=== PATIENT | female | born 1935 | race Caucasian/White ===

== ENCOUNTER 2019-05-14 15:32 | Emergency (ER) | payer OTHER, MEDICARE ==
[~2019-05-14] VITALS: Ht 165.1 cm; Wt 72.6 kg
[~2019-05-14 15:32] MED LIST: NORCO 5-325 TA1 EACH PO
[2019-05-14 17:04] LABS: ABSOLUTE NEUTROPHILS 7.6 thou/uL (1.4-8.2); BASOPHILS 0.8 % (0.0-2.0); EOSINOPHILS 1.3 % (0.0-3.0); HEMATOCRIT 28.3 % (37.0-47.0); HEMOGLOBIN 9.4 gm/dL (12.0-15.0); LYMPHOCYTES 14.1 % (24.0-44.0); MCH 28.2 pg (26.0-34.0); MCHC 33.3 g/dL (28.0-37.0); MCV 84.8 fL (80.0-100.0); MONOCYTES 9.5 % (1.0-8.0); PLATELET COUNT 262 thou/uL (150-400); POLYS 74.3 % (36.0-66.0); RBC 3.34 mil/uL (4.20-5.00); RDW 14.5 % (10.5-14.5); WBC 10.2 thou/uL (4.0-11.0)
[2019-05-14 17:09] LABS: ANION GAP 10 mmol/L (7-16); BUN 27 mg/dL (7-18); CALCIUM 9.6 mg/dL (8.5-10.1); CHLORIDE 105 mmol/L (98-107); CO2 22 mmol/L (21-32); CREATININE 1.4 mg/dL (0.6-1.0); GLUCOSE 178 mg/dL (74-106); POTASSIUM 4.3 mmol/L (3.5-5.1); SODIUM 137 mmol/L (136-145)
[2019-05-14 17:19] LABS: ALBUMIN 3.2 g/dL (3.4-5.0); DIRECT BILIRUBIN 0.2 mg/dL (<0.1-0.3); SGOT 50 U/L (15-37); SGPT 28 U/L (30-65); TOTAL BILIRUBIN 0.7 mg/dL (<0.1-1.0); TOTAL PROTEIN 6.5 g/dL (6.4-8.2); TROPONIN-I <0.06 ng/mL (<0.06)
[2019-05-14] MEDS ORDERED: HYDRALAZINE 10M10 MG PO (17:24)
[2019-05-14] MEDS ORDERED: LOPRESSOR50 PO (17:24)
[2019-05-14] MEDS ORDERED: METFORMIN HCL500 MG PO (17:24)
[2019-05-14] MEDS ORDERED: ASPIRIN81 M2 PO (17:25)
[2019-05-14] MEDS ORDERED: LASIX 20 MG TAB20 MG PO (17:25)
[2019-05-14] MEDS ORDERED: COZAAR 25 MG TA25 M2 PO (17:25)
[2019-05-14] MEDS ORDERED: TRICOR145 MG PO (17:26)
[2019-05-14] MEDS ORDERED: CARDIZEM CD120 MG PO (17:26)
[2019-05-14] MEDS ORDERED: GLUCOTROL5 MG PO (17:27)
[2019-05-14] MEDS ORDERED: CRESTOR10 MG PO (17:27)
[2019-05-14] MEDS ORDERED: PROBIOTIC1 EAC1 PO (17:28)
[2019-05-14] MEDS ORDERED: VITAMIN B-121000 MC3 PO (17:28)
[2019-05-14] MEDS ORDERED: VITAMIN D3400 UNIT PO (17:28)
[2019-05-14 19:33] VITALS: BP 144/51
--- NOTE | 2019-05-15 08:14 | EKG ---
[place] [address] [facility] [place] [address] ELECTROCARDIOGRAM REPORT Name: BERNIE ROBBINS Room #: DEP [facility]#: [id number] Admission: 05/14/19 Attend Phys: Discharge: 05/14/19 Date of : 33 Report #: [id number] THIS REPORT FOR: //name// [facility] ED Test Date: 2019-05-14 Test Time: 16:12:32 Pat Name: BERNIE ROBBINS Department: Room: Gender: F Advertising Sales Consultant: : [id number] Requested By: Shanna Vegas Order Number: [id number] MD: Roland Warner Measurements Intervals [place] Rate: 64 P: 0 [place]: 313 QRS: -3 QRSD: 103 T: 102 QT: 431 QTc: 445 Interpretive Statements Sinus rhythm Prolonged [place] interval Early R-wave progression Nonspecific ST and T wave abnormality Compared to ECG 02/09/2009 12:23:13 Early R-wave progression is now present Nonspecific ST and T wave abnormality is present Electronically Signed On 05-15-2019 8:13:36 CDT by Roland Warner [email or web address] <ELECTRONICALLY SIGNED> By: Roland Warner MD, [facility] 05/15/19 0813 [id number] 161 Roland Warner MD, [facility] /EPI
== END 2019-05-14 19:33 | disposition home or self-care (01) ==
LOC: ER 15:32
PROVIDERS: Emergency Medicine
DX: N17.9 Acute kidney failure, unspecified (principal); R06.00 Dyspnea, unspecified; I10 Essential (primary) hypertension; I48.91 Unspecified atrial fibrillation; E78.00 Pure hypercholesterolemia, unspecified; E11.9 Type 2 diabetes mellitus without complications; Z88.0 Allergy status to penicillin; Z88.6 Allergy status to analgesic agent

== ENCOUNTER → 2020-03-01 | Outpatient (CLI) | payer OTHER, MEDICARE ==
[~2020-03-01] MED LIST changes: +ASPIRIN81 M2 PO; +CARDIZEM CD120 MG PO; +COZAAR 25 MG TA25 M2 PO; +CRESTOR10 MG PO; +GLUCOTROL5 MG PO; +HYDRALAZINE 10M10 MG PO; +LASIX 20 MG TAB20 MG PO; +LOPRESSOR50 PO; +METFORMIN HCL500 MG PO; +PROBIOTIC1 EAC1 PO; +TRICOR145 MG PO; +VITAMIN B-121000 MC3 PO; +VITAMIN D3400 UNIT PO
== END ==
LOC: SJCVC 12:21
DX: I44.0 Atrioventricular block, first degree (principal); I10 Essential (primary) hypertension; E78.5 Hyperlipidemia, unspecified; E78.00 Pure hypercholesterolemia, unspecified; E11.9 Type 2 diabetes mellitus without complications; I38 Endocarditis, valve unspecified; Z82.49 Family history of ischemic heart disease and other diseases of the circulatory system; Z79.82 Long term (current) use of aspirin; Z79.899 Other long term (current) drug therapy; Z79.84 Long term (current) use of oral hypoglycemic drugs

== ENCOUNTER → 2020-11-01 | Outpatient (CLI) | payer OTHER, MEDICARE | LOC: SJCVC 13:19 | PROVIDERS: ATTEND Internal Medicine Cardiovascular Disease | DX: R94.31 Abnormal electrocardiogram [ECG] [EKG] (principal); I44.7 Left bundle-branch block, unspecified; I44.0 Atrioventricular block, first degree; I10 Essential (primary) hypertension; E78.00 Pure hypercholesterolemia, unspecified; E11.9 Type 2 diabetes mellitus without complications; I38 Endocarditis, valve unspecified; I48.91 Unspecified atrial fibrillation; Z79.82 Long term (current) use of aspirin; Z79.899 Other long term (current) drug therapy; Z72.89 Other problems related to lifestyle; Z88.5 Allergy status to narcotic agent; Z88.0 Allergy status to penicillin ==

== ENCOUNTER → 2021-06-17 | Outpatient (CLI) | payer OTHER, MEDICARE | LOC: SJCVC 13:14 | PROVIDERS: ATTEND Internal Medicine Cardiovascular Disease | DX: R94.31 Abnormal electrocardiogram [ECG] [EKG] (principal); I44.7 Left bundle-branch block, unspecified; I10 Essential (primary) hypertension; E78.00 Pure hypercholesterolemia, unspecified; E11.9 Type 2 diabetes mellitus without complications; I48.91 Unspecified atrial fibrillation; Z79.82 Long term (current) use of aspirin; Z72.89 Other problems related to lifestyle; Z79.899 Other long term (current) drug therapy; Z88.5 Allergy status to narcotic agent; Z88.2 Allergy status to sulfonamides ==